=== PATIENT | male | born 1935 | race Caucasian/White ===

== ENCOUNTER 2017-03-26 12:06 | Inpatient (IN) | payer MEDICARE, BC ==
--- NOTE | 2017-03-26 12:35 | EDM.PDOC ---
ED HPI GENERAL MEDICAL PROBLEM - General Chief Complaint: Respiratory Problem Stated Complaint: COLD Time Seen by Provider: 03/26/17 12:20 Source of Information: Reports: Patient History Limitations: Reports: No Limitations - History of Present Illness INITIAL COMMENTS - FREE TEXT/NARRATIVE: This 81 yo male patient reports to the ED with a 1 month history of an increased cough. The patient reports he was seen by Dr. Elias yesterday in the clinic, given a fluid pill and was supposed to have an Echo scheduled. The patient reports his cough has continued, so he came into the ED for further evaluation and management. Onset: Gradual Onset Date: 02/23/17 Duration: Constant, Getting Worse Location: Reports: Chest (right posterior lower lung) Quality: Reports: Ache, Dull Severity: Moderate Improves with: Reports: None Worsens with: Reports: None Associated Symptoms: Reports: Cough, Nausea/Vomiting Left Lower Chest Pain Score (Numeric/FACES): 6 - Related Data Allergies Allergy/AdvReac Type Severity Reaction Status Date / Time ezetimibe [From Zetia] Allergy Nausea and Verified 03/26/17 12:34 Vomiting fluvastatin Allergy unknown Verified 03/26/17 12:34 lisinopril Allergy Hives Verified 03/26/17 12:34 losartan [Losartan] Allergy Itching Verified 03/26/17 12:34 simvastatin Allergy unknown Verified 03/26/17 12:34 tetracycline Allergy unknown Verified 03/26/17 12:34 Home Meds: Home Meds Aspirin [Ecotrin] 81 mg PO DAILY 06/14/13 [History] Doxazosin [Doxazosin Mesylate] 4 mg PO DAILY 06/14/13 [History] Metoprolol Tartrate 100 mg PO BID 06/14/13 [History] Multivitamin [Multivitamins] 1 tab PO DAILY 06/14/13 [History] Nitroglycerin [Nitrostat] 1 tab SL ASDIRECTED PRN 06/14/13 [History] Ranitidine [Zantac] 150 mg PO DAILY 06/14/13 [History] Rosuvastatin [Crestor] 20 mg PO DAILY 06/14/13 [History] Warfarin [Coumadin] 2.5 mg PO ASDIRECTED 06/14/13 [History] Warfarin [Coumadin] 5 mg PO ASDIRECTED 06/14/13 [History] amLODIPine [Norvasc] 10 mg PO DAILY 06/14/13 [History] ED ROS GENERAL - Review of Systems Review Of Systems: ROS reveals no pertinent complaints other than HPI. ED EXAM, GENERAL - Physical Exam Exam: See Below Exam Limited By: No Limitations General Appearance: Alert, WD/WN, Moderate Distress Eye Exam: Bilateral Eye: EOMI, Normal Inspection, PERRL Ears: Normal External Exam, Normal Canal, Hearing Grossly Normal, Normal TMs Nose: Normal Inspection, Normal Mucosa, No Blood Throat/Mouth: Normal Inspection, Normal Lips, Normal Teeth, Normal Gums, Normal Oropharynx, Normal Voice, No Airway Compromise Head: Atraumatic, Normocephalic Neck: Normal Inspection, Supple, Non-Tender, Full Range of Motion Respiratory/Chest: No Respiratory Distress, Decreased Breath Sounds, Rhonchi ( bilateral lower lobes) Cardiovascular: Systolic Murmur, Irregularly Irregular GI/Abdominal: Normal Bowel Sounds, Soft, Non-Tender, No Organomegaly, No Distention, No Abnormal Bruit, No Mass (Male) Exam: Deferred Rectal (Males) Exam: Deferred Back Exam: Normal Inspection, Full Range of Motion, NT Extremities: Normal Inspection, Normal Range of Motion, Non-Tender, Normal Capillary Refill, No Pedal Edema Neurological: Alert, Oriented, CN II-XII Intact, Normal Cognition, Normal Gait, Normal Reflexes, No Motor/Sensory Deficits Psychiatric: Normal Affect, Normal Mood Skin Exam: Warm, Dry, Intact, Normal Color, No Rash Lymphatic: No Adenopathy Course - Vital Signs Last Recorded V/S: Last Vital Signs Temp 36.3 C 03/26/17 12:10 Pulse 69 03/26/17 12:10 Resp 18 03/26/17 12:10 BP 161/73 H 03/26/17 12:10 Pulse Ox 91 L 03/26/17 12:10 - Orders/Labs/Meds Orders: Active Orders 24 hr Category Date Time Status Furosemide [Lasix] Med 03/26/17 13:17 Once 40 mg IVPUSH NOW ONE Sodium Chloride 0.9% [Saline Flush] Med 03/26/17 13:17 Ordered 10 ml FLUSH ASDIRECTED PRN Saline Lock Insert [OM.PC] Routine Oth 03/26/17 13:17 Ordered Labs: Laboratory Tests 03/26/17 03/26/17 03/26/17 Range/Units 12:40 12:40 12:40 WBC 3.7 L (5.0-10.0) 10^3/uL RBC 3.91 L (4.6-6.2) 10^6/uL Hgb 9.7 L (14.0-18.0) g/dL Hct 29.1 L (40.0-54.0) % MCV 74.4 L (80-100) fL MCH 24.8 L (27.0-34.0) pg MCHC 33.3 (33.0-35.0) g/dL Plt Count 182 (150-450) 10^3/uL Neut % (Auto) 71.6 (42.2-75.2) % Lymph % (Auto) 12.7 L (20.5-50.1) % [place] % (Auto) 15.4 H (2-8) % Eos % (Auto) 0.0 L (1.0-3.0) % Baso % (Auto) 0.3 (0.0-1.0) % Sodium 126 L (135-145) mmol/L Potassium 4.3 (3.6-5.0) mmol/L Chloride 92 L (101-111) mmol/L Carbon Dioxide 23.0 (21.0-31.0) mmol/L Anion Gap 15.3 BUN 17 (7-18) mg/dL Creatinine 1.0 (0.6-1.3) mg/dL Est Cr Clr Drug Dosing 63.59 mL/min Estimated GFR (MDRD) > 60 BUN/Creatinine Ratio 17.00 Glucose 112 H (74-105) mg/dL Calcium 8.9 (8.4-10.2) mg/dl Total Bilirubin 1.0 (0.2-1.0) mg/dL AST 24 (10-42) IU/L ALT 17 (10-60) IU/L Alkaline Phosphatase 51 (42-121) IU/L B-Natriuretic Peptide 1390 H (0-100) pg/ml Total Protein 7.6 (6.7-8.2) g/dl Albumin 4.1 (3.2-5.5) g/dl Globulin 3.5 Albumin/Globulin Ratio 1.17 Departure - Departure Time of Disposition: 13:19 Disposition: Admitted As Inpatient 66 Condition: Fair Clinical Impression: Hyponatremia CHF (congestive heart failure) Qualifiers: Congestive heart failure type: unspecified congestive heart failure type Congestive heart failure chronicity: acute on chronic Qualified Code(s): I50.9 - Heart failure, unspecified - Discharge Information Care Plan Goals: Discussed the examination, history and lab results with Dr. Inman. The patient will be admitted for continued evaluation and management as an inpatient at [facility] in [place]. - My Orders Last 24 Hours: My Active Orders 03/26/17 13:17 Furosemide [Lasix] 40 mg IVPUSH NOW ONE Sodium Chloride 0.9% [Saline Flush] 10 ml FLUSH ASDIRECTED PRN Saline Lock Insert [OM.PC] Routine - Assessment/Plan Last 24 Hours: My Active Orders 03/26/17 13:17 Furosemide [Lasix] 40 mg IVPUSH NOW ONE Sodium Chloride 0.9% [Saline Flush] 10 ml FLUSH ASDIRECTED PRN Saline Lock Insert [OM.PC] Routine
[2017-03-26 13:06] LABS: CHLORIDE,CL 92 mmol/L (101-111); SODIUM,NA 126 mmol/L (135-145)
[2017-03-26] MEDS ORDERED: Furosemide 40 MG/4 ML VIAL IVPUSH ONE (13:17)
[2017-03-26] MEDS ORDERED: Sodium Chloride 0.9% 10 ML Syringe FLUSH PRN ×2 (13:17→15:02)
[2017-03-26] MEDS ORDERED: Albuterol/Ipratropium 3.0-0.5 MG/3 ML Neb Soln NEB PRN (15:02)
[2017-03-26] MEDS ORDERED: Acetaminophen 325 MG Tab PO PRN (15:02)
[2017-03-26] MEDS ORDERED: Ondansetron 4 MG/2 ML SDV IVPUSH PRN (15:02)
--- NOTE | 2017-03-26 15:10 | PCM.HP ---
H&P History of Present Illness - General Date of Service: 03/26/17 Source of Information: Patient - History of Present Illness Initial Comments - Free Text/Narative: 81-year-old male with the past medical history of coronary artery disease status post bypass surgery many years ago, atrial fibrillation with detention anticoagulations, GERD, dyslipidemia, gallstones, liver cancer, hypertension presented to the emergency room for having worsening of dry cough and exertional shortness of breath for the last 1 month. Patient stated that the symptoms started last winter and they come and go. It has been difficult for him to sleep some nights because of shortness of breath. He reported also chest heaviness with exertion. He said the symptoms comes when he walks around the house. He denies shortness of breath or chest heaviness on rest. He reported lower extremities edema started 4 months ago and getting worse. Patient denies fever, chills, nausea, vomiting, diarrhea, abdominal pain, urinary symptoms, blood in stool, black stool, unilateral weakness/numbness/tingling, any other symptoms or concern. He was seen in the clinic for the same symptoms and BNP was 919. However today is 1390. Hemoglobin is 9.7. WBC 3.7. Platelet 182. Sodium 126. Potassium 4.3. He was started on Lasix 20 mg by mouth daily by his PCP yesterday. Patient did not feel any better. Chest x-ray from yesterday at the clinic reported "FINDINGS: Prior median sternotomy. Fractured wires are noted. Heart size upper normal to mildly prominent. There is congestive change within the pulmonary vasculature. Bilateral pleural effusions are present. Bilateral pulmonary opacities likely relate at least in part to edema. Superimposed atelectasis or infiltrate is not excluded. There is atherosclerotic change of the thoracic aorta." Echocardiogram from 1 year ago reported: "Interpretation Summary Left ventricular systolic function is normal. Ejection Fraction = >60%. The aortic valve is severely calcified. Moderate to severe valvular aortic stenosis. Mild aortic regurgitation. There is mild to moderate mitral regurgitation." Left Lower Chest Pain Score (Numeric/FACES): 6 - Related Data Allergies/Adverse Reactions: Allergies Allergy/AdvReac Type Severity Reaction Status Date / Time ezetimibe [From Zetia] Allergy Intermediate Nausea and Verified 03/26/17 14:58 Vomiting lisinopril Allergy Intermediate Hives Verified 03/26/17 14:58 losartan [Losartan] Allergy Mild Itching Verified 03/26/17 14:58 fluvastatin Allergy Unknown unknown Verified 03/26/17 14:58 simvastatin Allergy Unknown unknown Verified 03/26/17 14:58 tetracycline Allergy Unknown unknown Verified 03/26/17 15:00 Home Medications: Home Meds Aspirin [Ecotrin] 81 mg PO WITHDINNER 06/14/13 [History] Doxazosin [Doxazosin Mesylate] 4 mg PO DAILY 06/14/13 [History] Multivitamin [Multivitamins] 1 tab PO DAILY 06/14/13 [History] Nitroglycerin [Nitrostat] 1 tab SL ASDIRECTED PRN 06/14/13 [History] RX: Metoprolol Tartrate 100 mg PO BID 06/14/13 [History] Ranitidine [Zantac] 150 mg PO ACBREAKFAST 06/14/13 [History] Rosuvastatin [Crestor] 20 mg PO BEDTIME 06/14/13 [History] Warfarin [Coumadin] 2.5 mg PO ASDIRECTED 06/14/13 [History] Warfarin [Coumadin] 5 mg PO ASDIRECTED 06/14/13 [History] amLODIPine [Norvasc] 10 mg PO .NOON 06/14/13 [History] Past Medical History HEENT History: Reports: Hard of Hearing, Impaired Vision Cardiovascular History: Reports: Afib, Bypass, CAD, High Cholesterol, Hypertension, Other (See Below) Other Cardiovascular History: carotid artery disease Respiratory History: Reports: SOB Gastrointestinal History: Reports: GERD Genitourinary History: Reports: BPH Hematologic History: Reports: Blood Transfusion(s) Oncologic (Cancer) History: Reports: Liver, Other (See Below) Other Oncologic History: skin CA unknown what type Dermatologic History: Reports: Other (See Below) Other Dermatologic History: actinic keratosis - Past Surgical History Cardiovascular Surgical History: Reports: Valve Replacement Respiratory Surgical History: Reports: None Social & Family History - Family History HEENT: Reports: None Cardiac: Reports: Hypertension Respiratory: Reports: None - Tobacco Use Smoking Status *Q: Former Smoker Years of Tobacco use: 2 Packs/Tins Daily: 0.5 Used Tobacco, but Quit: Yes Month Tobacco Last Used: 96+ Tobacco Use Comment: quit years ago Second Hand Smoke Exposure: No - Caffeine Use Caffeine Use: Reports: Coffee - Recreational Drug Use Recreational Drug Use: No H&P Review of Systems - Review of Systems: Review Of Systems: ROS reveals no pertinent complaints other than HPI. Exam - Exam Exam: See Below - Vital Signs Vital Signs: Last Vital Signs Temp 36.5 C 03/26/17 14:00 Pulse 79 03/26/17 14:00 Resp 16 03/26/17 14:00 BP 153/61 H 03/26/17 14:00 Pulse Ox 88 L 03/26/17 14:00 Weight: 85.729 kg - Exam General: Alert, Oriented, Cooperative. No: Moderate Distress, Severe Distress, Sedated, Lethargic, Obtunded HEENT: Conjunctiva Clear, EACs Clear, EOMI, Mucosa Moist & [place], Nares Patent, Normal Nasal Septum, Posterior Pharynx Clear, Pupils Equal, Pupils Reactive, TMs Clear Neck: Supple, Trachea Midline. No: JVD Lungs: Normal Respiratory Effort, Decreased Breath Sounds (Mostly in basis). No : Crackles, Rales, Rhonchi, Rub, Stridor, Wheezing Cardiovascular: Regular Rate, Regular Rhythm, Normal S1 GI/Abdominal Exam: Normal Bowel Sounds, Non-Tender, No Organomegaly, No Distention, No Abnormal Bruit, No Mass (Male) Exam: Deferred Rectal (Males) Exam: Deferred Back Exam: Normal Inspection, Full Range of Motion. No: CVA Tenderness (L), CVA Tenderness (R) Extremities: Normal Range of Motion, Non-Tender, Normal Capillary Refill, Pedal Edema (+3 bilaterally) Skin: Warm, Dry, Intact Neurological: Cranial Nerves Intact Neuro Extensive - Mental Status: Oriented x3, Normal Mood/Affect Neuro Extensive - Motor, Sensory, Reflexes: CN II-XII Intact Psychiatric: Alert, Normal Affect, Normal Mood - Patient Data Result Diagrams: 03/26/17 12:40 03/26/17 12:40 *Q Meaningful Use (ADM) - VTE *Q VTE Criteria *Q: - Stroke *Q Stroke Criteria *Q: - AMI *Q AMI Criteria *Q: - Problem List (1) Atrial fibrillation SNOMED Code(s): 41810218 ICD Code: I48.91 - UNSPECIFIED ATRIAL FIBRILLATION Status: Chronic Current Visit: Yes (2) Coronary artery disease SNOMED Code(s): 76212171 ICD Code: I25.10 - ATHSCL HEART DISEASE OF [place] CORONARY ARTERY W/O ANG PCTRS Status: Chronic Current Visit: Yes (3) Chronic anticoagulation SNOMED Code(s): 666080195 ICD Code: Z79.01 - PARER (CURRENT) USE OF ANTICOAGULANTS Status: Chronic Current Visit: Yes (4) Lower extremity edema SNOMED Code(s): 959075054 ICD Code: R60.0 - LOCALIZED EDEMA Status: Acute Current Visit: Yes Problem List Initiated/Reviewed/Updated: Yes Orders Last 24hrs: Active Orders 24 hr Category Date Time Status Sodium Chloride 0.9% [Saline Flush] Med 03/26/17 13:17 Active 10 ml FLUSH ASDIRECTED PRN Saline Lock Insert [OM.PC] Routine Oth 03/26/17 13:17 Ordered Medication Orders Sodium Chloride (Saline Flush) 10 ml FLUSH ASDIRECTED PRN PRN Reason: Keep Vein Open Last Admin: 03/26/17 13:24 Dose: 10 ml Assessment/Plan Comment:: Assessment and plan Acute exacerbation of congestive heart failure Start on Lasix 40 mg IV every 8 hours. Potassium chloride 10 mEq by mouth every 8 hours while on Lasix Strict I&O's Daily weight Fluid restriction to 1500 mL per 24 hours Repeat BNP Echocardiogram ordered. Available on Wednesday Hold amlodipine and start lisinopril 5 mg daily as I am suspecting his congestive heart failure to be systolic Hyponatremia Possibly from congestive heart failure Treat as above Purulent effusion, bilateral Possibly from congestive heart failure Treat as above Cough He is former smoker DuoNeb every 6 hours Lower extremities edema Most likely from congestive heart failure Treat as above Hold amlodipine History of atrial fibrillation Continue warfarin Essential hypertension Mildly elevated Continue metoprolol Hold amlodipine and start lisinopril 5 mg daily If blood pressure continues to be elevated then may consider hydralazine or Imdur Coronary artery disease Check troponin EKG is unremarkable for acute T-wave or ST interval changes Dyslipidemia Continue statin History of liver cancer Follow-up with primary care provider DVT prophylaxis: He is in Coumadin and INR is therapeutic He wants to be DNR for CODE STATUS
[2017-03-26] MEDS: Furosemide 40 MG/4 ML VIAL IVPUSH SCH ×2 (15:58→23:00)
[2017-03-26] MEDS ORDERED: Nitroglycerin 0.4 MG Tab.SL SL PRN (16:39)
[2017-03-26] MEDS ORDERED: Lisinopril 5 MG Tab PO SCH (16:42)
[2017-03-26] MEDS: Potassium Chloride 10 MEQ Tab.ER PO SCH ×2 (17:24→19:46)
[2017-03-26] MEDS: Aspirin 81 MG Tab.EC PO SCH (17:24)
--- NOTE | 2017-03-26 17:26 | PCM.SN ---
- Free Text/Narrative Note: Was found that patient is allergic to lisinopril and losartan. I am changing it to hydralazine 12.5 mg every 8 hours.
[2017-03-26] MEDS: Albuterol/Ipratropium 3.0-0.5 MG/3 ML Neb Soln NEB SCH ×3 (17:28→23:00)
[2017-03-26] MEDS ORDERED: Warfarin 2.5 MG Tab PO SCH (18:00)
[2017-03-26] MEDS: hydrALAZINE 25 MG Tab PO SCH (19:47)
[2017-03-26] MEDS: Metoprolol Tartrate 25 MG Tab PO SCH (20:51)
[2017-03-26] MEDS: Rosuvastatin 10 MG Tab PO SCH (20:51)
[2017-03-27] MEDS: Famotidine 20 MG Tab PO SCH ×2 (05:36→16:25)
[2017-03-27] MEDS: Albuterol/Ipratropium 3.0-0.5 MG/3 ML Neb Soln NEB SCH ×4 (05:36→18:07)
[2017-03-27 07:02] LABS: CHLORIDE,CL 92 mmol/L (101-111); SODIUM,NA 128 mmol/L (135-145)
[2017-03-27] MEDS: Metoprolol Tartrate 25 MG Tab PO SCH ×2 (09:22→20:52)
[2017-03-27] MEDS: Potassium Chloride 10 MEQ Tab.ER PO SCH ×3 (09:22→17:27)
[2017-03-27] MEDS: hydrALAZINE 25 MG Tab PO SCH ×3 (09:23→20:51)
[2017-03-27] MEDS: Doxazosin 2 MG Tab PO SCH (09:25)
[2017-03-27] MEDS: Multivitamins,Therapeutic Tab PO SCH (09:25)
[2017-03-27] MEDS: Furosemide 40 MG/4 ML VIAL IVPUSH SCH ×3 (09:27→22:58)
--- NOTE | 2017-03-27 10:33 | PCM.PN ---
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 Denies: Fever, Chills , Appetite (good) HEENT: Denies: Headaches, Sore Throat, Visual Changes Pulmonary: Reports: Shortness of Breath, Sputum. Denies: Cough, Wheezing Cardiovascular: Reports: Dyspnea on Exertion. Denies: Chest Pain, Lightheadedness Gastrointestinal: Denies: Abdominal Pain, Diarrhea, Nausea, Vomiting Genitourinary: Denies: Dysuria, Burning, Urgency, Flank Pain Musculoskeletal: Denies: Hand Pain, Leg Pain, Foot Pain, Joint Pain Skin: Denies: Bruising, Pruritis, Rash Neurological: Denies: Confusion, Headache, Tremors Psychiatric: Reports: No Symptoms - Patient Data Vitals - Most Recent: Last Vital Signs Temp 36.9 C 03/27/17 07:00 Pulse 63 03/27/17 09:22 Resp 20 03/27/17 07:00 BP 141/66 H 03/27/17 09:25 Pulse Ox 95 03/27/17 07:00 Weight - Most Recent: 80.014 kg I&O - Last 24 Hours: Intake & Output 03/26/17 03/27/17 03/27/17 22:59 06:59 14:59 Intake Total 250 Output Total 2100 Balance 250 -2100 Lab Results Last 24 Hours: Laboratory Results - last 24 hr 03/26/17 03/27/17 03/27/17 Range/Units 16:25 05:55 05:55 WBC 4.5 L (5.0-10.0) 10^3/uL RBC 3.75 L (4.6-6.2) 10^6/uL Hgb 9.2 L (14.0-18.0) g/dL Hct 27.9 L (40.0-54.0) % MCV 74.4 L (80-100) fL MCH 24.5 L (27.0-34.0) pg MCHC 33.0 (33.0-35.0) g/dL Plt Count 177 (150-450) 10^3/uL Neut % (Auto) 66.2 (42.2-75.2) % Lymph % (Auto) 15.4 L (20.5-50.1) % [place] % (Auto) 18.0 H (2-8) % Eos % (Auto) 0.2 L (1.0-3.0) % Baso % (Auto) 0.2 (0.0-1.0) % Sodium 128 L (135-145) mmol/L Potassium 3.6 (3.6-5.0) mmol/L Chloride 92 L (101-111) mmol/L Carbon Dioxide 25.0 (21.0-31.0) mmol/L Anion Gap 14.6 BUN 17 (7-18) mg/dL Creatinine 1.0 (0.6-1.3) mg/dL Est Cr Clr Drug Dosing 63.59 mL/min Estimated GFR (MDRD) > 60 Glucose 96 (74-105) mg/dL Calcium 8.5 (8.4-10.2) mg/dl Magnesium 1.7 L (1.8-2.5) mg/dL Troponin I 0.02 (0.00-0.02) ng/ml B-Natriuretic Peptide 1890 H (0-100) pg/ml Urine Color Yellow (YELLOW) Urine Appearance Clear (CLEAR) Urine pH 5.5 (5.0-9.0) Ur Specific [place] 1.010 (1.005-1.030) Urine Protein Negative (NEGATIVE) Urine Glucose (UA) Negative (NEGATIVE) Urine Ketones Negative (NEGATIVE) Urine Occult Blood Small H (NEGATIVE) Urine Nitrite Negative (NEGATIVE) Urine Bilirubin Negative (NEGATIVE) Urine Urobilinogen 0.2 (0.2-1.0) mg/dL Ur Leukocyte Esterase Negative (NEGATIVE) Urine RBC 5-10 H /HPF Urine WBC Not seen (0-5/HPF) /HPF Ur Epithelial Cells Rare /HPF Urine Bacteria Rare (0-FEW/HPF) /HPF Med Orders - Current: Current Medications Acetaminophen (Tylenol) 650 mg PO Q4H PRN PRN Reason: Pain (Mild 1-3)/fever Albuterol/Ipratropium (Duoneb 3.0-0.5 Mg/3 Ml) 3 ml NEB Q6H [facility] Last Admin: 03/27/17 05:36 Dose: 3 ml Aspirin (Halfprin) 81 mg PO WITHDINNER [facility] Last Admin: 03/26/17 17:24 Dose: 81 mg Doxazosin Mesylate (Cardura) 4 mg PO DAILY [facility] Last Admin: 03/27/17 09:25 Dose: 4 mg Famotidine (Pepcid) 20 mg PO BIDAC [facility] Last Admin: 03/27/17 05:36 Dose: 20 mg Furosemide (Lasix) 40 mg IVPUSH Q8H [facility] Last Admin: 03/27/17 09:27 Dose: 40 mg Hydralazine HCl (Apresoline) 12.5 mg PO TID [facility] Last Admin: 03/27/17 09:23 Dose: 12.5 mg Metoprolol Tartrate (Lopressor) 100 mg PO BID [facility] Last Admin: 03/27/17 09:22 Dose: 100 mg Multivitamins (Thera) 1 each PO DAILY [facility] Last Admin: 03/27/17 09:25 Dose: 1 each Nitroglycerin (Nitrostat) 0.4 mg SL ASDIRECTED PRN PRN Reason: Chest Pain Ondansetron HCl (Zofran) 4 mg IVPUSH Q6H PRN PRN Reason: Nausea/Vomiting Potassium Chloride (Klor-Con 10) 10 meq PO TIDMEALS [facility] Last Admin: 03/27/17 09:22 Dose: 10 meq Rosuvastatin Calcium (Crestor) 20 mg PO BEDTIME [facility] Last Admin: 03/26/17 20:51 Dose: 20 mg Sodium Chloride (Saline Flush) 10 ml FLUSH ASDIRECTED PRN PRN Reason: Keep Vein Open Last Admin: 03/26/17 13:24 Dose: 10 ml Warfarin Sodium (Coumadin) 2.5 mg PO [id number]@1400 [facility] Last Admin: 03/26/17 19:47 Dose: 2.5 mg Warfarin Sodium (Coumadin) 5 mg PO [id number]@1400 [facility] Discontinued Medications Albuterol/Ipratropium (Duoneb 3.0-0.5 Mg/3 Ml) 3 ml NEB Q4H PRN PRN Reason: shortness of breath/wheezing Furosemide (Lasix) 40 mg IVPUSH NOW ONE Stop: 03/26/17 13:18 Last Admin: 03/26/17 13:24 Dose: 40 mg Lisinopril (Prinivil) 5 mg PO DAILY [facility] Last Admin: 03/26/17 18:49 Dose: Not Given - Exam Quality Assessment: Supplemental Oxygen, DVT Prophylaxis. No: Urine Catheter General: Alert, Oriented, Cooperative, No Acute Distress HEENT: Pupils Equal, Mucous Membr. Moist/[place] Neck: Supple, JVD. No: Lymphadenopathy, Thyromegaly Lungs: Clear to Auscultation, Normal Respiratory Effort, Crackles Cardiovascular: Irregular Rhythm, Murmurs GI/Abdominal Exam: Normal Bowel Sounds, No Distention. No: Guarding, Rebound, Tender (Male) Exam: Deferred Back Exam: Normal Inspection, Full Range of Motion Extremities: Normal Inspection, Pedal Edema, Other (good peripheral pulses) Skin: Warm, Dry, Intact Neurological: No New Focal Deficit Psy/Mental Status: Alert, Normal Affect, Normal Mood - Problem List & Annotations (1) CHF (congestive heart failure) SNOMED Code(s): 41557839 Code(s): I50.9 - HEART FAILURE, UNSPECIFIED Status: Acute Current Visit: Yes Qualifiers: Congestive heart failure type: unspecified congestive heart failure type Congestive heart failure chronicity: acute on chronic Qualified Code(s): I50.9 - Heart failure, unspecified (2) Hyponatremia SNOMED Code(s): 42065905 Code(s): E87.1 - HYPO-OSMOLALITY AND HYPONATREMIA Status: Acute Current Visit: Yes (3) Lower extremity edema SNOMED Code(s): 330867710 Code(s): R60.0 - LOCALIZED EDEMA Status: Acute Current Visit: Yes (4) Atrial fibrillation SNOMED Code(s): 21567669 Code(s): I48.91 - UNSPECIFIED ATRIAL FIBRILLATION Status: Chronic Current Visit: Yes (5) Chronic anticoagulation SNOMED Code(s): 890718735 Code(s): Z79.01 - [place] (CURRENT) USE OF ANTICOAGULANTS Status: Chronic Current Visit: Yes - Problem List Review Problem List Initiated/Reviewed/Updated: Yes - Plan Plan:: This is a 81 Y/O pleasant male admitted with increaseds shortness of breath, dyspnea on exertion and incread fluid retention to his lower extremity Assessment and plan Acute exacerbation of congestive heart failure Start on Lasix 40 mg IV every 8 hours. Potassium chloride 10 mEq by mouth every 8 hours while on Lasix Strict I&O's Daily weight continue Fluid restriction to 1500 mL per 24 hours Repeat BNP Echocardiogram ordered but will be not be Available on Wednesday Hold amlodipine and start lisinopril 5 mg daily as I am suspecting his congestive heart failure to be systolic Hyponatremia Possibly from congestive heart failure Will continue IV lasix and fluid restriction, sodium is improving Cough He is former smoker Continue DuoNeb every 6 hours and wean off oxygen Lower extremities edema Most likely from congestive heart failure -Will continue IV lasix and Hold amlodipine History of atrial fibrillation Continue warfarin Essential hypertension Mildly elevated Continue metoprolol Hold amlodipine and continue Hydralazine at 25 mg TID Dyslipidemia Continue statin History of liver cancer Follow-up with primary care provider DVT prophylaxis: He is in Coumadin and INR is therapeutic GI prophylaxis: Contone Protonix He wants to be DNR for CODE STATUS
[2017-03-27] MEDS ORDERED: Warfarin 5 MG Tab PO SCH (14:00)
[2017-03-27] MEDS: Aspirin 81 MG Tab.EC PO SCH (17:27)
[2017-03-27] MEDS: Rosuvastatin 10 MG Tab PO SCH (20:52)
[2017-03-28] MEDS: Albuterol/Ipratropium 3.0-0.5 MG/3 ML Neb Soln NEB SCH ×3 (02:50→13:34)
[2017-03-28] MEDS: Famotidine 20 MG Tab PO SCH (05:32)
[2017-03-28 06:17] LABS: CHLORIDE,CL 89 mmol/L (101-111); SODIUM,NA 130 mmol/L (135-145)
[2017-03-28] MEDS: Furosemide 40 MG/4 ML VIAL IVPUSH SCH ×2 (10:45→16:21)
[2017-03-28] MEDS: Metoprolol Tartrate 25 MG Tab PO SCH (10:45)
[2017-03-28] MEDS: hydrALAZINE 25 MG Tab PO SCH ×2 (10:46→13:39)
[2017-03-28] MEDS: Doxazosin 2 MG Tab PO SCH (10:46)
[2017-03-28] MEDS: Potassium Chloride 10 MEQ Tab.ER PO SCH ×2 (10:46→12:53)
[2017-03-28] MEDS: Multivitamins,Therapeutic Tab PO SCH (10:46)
[2017-03-28] MEDS ORDERED: Potassium Chloride 10 MEQ Tab.ER PO ONE (10:50)
--- NOTE | 2017-03-28 11:24 | PCM.DCSUM1 ---
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 Pt was admitted for Fluid overload and dyspnea on exertion and was give IV lasix ( 40 mg 3 times a day]. He is now doing well, off supplemental oxygen and will be going home. Pt is advised to Follow with PMD within 2-3 days. He will go home on lasix 40 mg daily and also on potassium 10 meq daily. He will have labs and follow up with PMD in 2-3 days. HPI Initial Comments: Pt was admitted with Exertional Dyspnea and Increased B/L LE swelling - Discharge Data Discharge Date: 03/28/17 Discharge Disposition: Home, Self-Care 01 Condition: Good - Discharge Diagnosis/Problem(s) (1) CHF (congestive heart failure) SNOMED Code(s): 55952661 ICD Code: I50.9 - HEART FAILURE, UNSPECIFIED Status: Acute Current Visit : Yes Qualifiers: Congestive heart failure type: unspecified congestive heart failure type Congestive heart failure chronicity: acute on chronic Qualified Code(s): I50.9 - Heart failure, unspecified (2) Hyponatremia SNOMED Code(s): 40423267 ICD Code: E87.1 - HYPO-OSMOLALITY AND HYPONATREMIA Status: Acute Current Visit: Yes (3) Lower extremity edema SNOMED Code(s): 297981809 ICD Code: R60.0 - LOCALIZED EDEMA Status: Acute Current Visit: Yes (4) Atrial fibrillation SNOMED Code(s): 44136581 ICD Code: I48.91 - UNSPECIFIED ATRIAL FIBRILLATION Status: Chronic Current Visit: Yes (5) Chronic anticoagulation SNOMED Code(s): 478637648 ICD Code: Z79.01 - PROTOTYPE CARPENTER (CURRENT) USE OF ANTICOAGULANTS Status: Chronic Current Visit: Yes - Patient Summary/Data Consults: Consultations 03/26/17 18:53 Consult to Pharmacy [CONS] Routine - Patient Instructions Diet: Usual Diet as Tolerated, Low Sodium Activity: As Tolerated Driving: May Drive Today Showering/Bathing: May Shower Other/Special Instructions: This is a 81-year-old male with the past medical history of coronary artery disease ,status post bypass surgery many years ago, 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 Pt was admitted for Fluid overload ( Secondary to Acute CHF) and dyspnea on exertion and was give IV lasix ( 40 mg 3 times a day]. He is now doing well, off supplemental oxygen and will be going home. Pt is advised to Follow with PMD within 2-3 days. He will go home on lasix 40 mg daily and also on potassium 10 meq daily. He will neded labs and follow up with PMD in 2-3 days. - Discharge Plan Prescriptions/Med Rec: Furosemide 40 mg PO DAILY 15 Days #15 tablet hydrALAZINE [Apresoline] 25 mg PO BID #30 tablet Potassium Chloride [Klor-Con 10] 10 meq PO DAILY 15 Days #15 tab.er Home Medications: Home Meds Aspirin [Ecotrin] 81 mg PO WITHDINNER 06/14/13 [History] Doxazosin [Cardura] 4 mg PO DAILY 06/14/13 [History] Metoprolol Tartrate 100 mg PO BID 06/14/13 [History] Multivitamin [Multivitamins] 1 tab PO DAILY 06/14/13 [History] Nitroglycerin [Nitrostat] 1 tab SL ASDIRECTED PRN 06/14/13 [History] Ranitidine [Zantac] 150 mg PO ACBREAKFAST 06/14/13 [History] Rosuvastatin [Crestor] 20 mg PO BEDTIME 06/14/13 [History] Warfarin [Coumadin] 2.5 mg PO ASDIRECTED 06/14/13 [History] Warfarin [Coumadin] 5 mg PO ASDIRECTED 06/14/13 [History] Furosemide 40 mg PO DAILY 15 Days #15 tablet 03/28/17 [Rx] Potassium Chloride [Klor-Con 10] 10 meq PO DAILY 15 Days #15 tab.er 03/28/17 [Rx ] hydrALAZINE [Apresoline] 25 mg PO BID #30 tablet 03/28/17 [Rx] - Discharge Summary/Plan Comment DC Time >30 min.: Yes Discharge Summary/Plan Comment: This is a 81 Y/O pleasant male admitted with increased shortness of breath, dyspnea on exertion and increased fluid retention to his B/L lower extremity Assessment and plan Acute exacerbation of congestive heart failure Will stop IV Lasix and will go home on lasix 40 mg daily -Will continue Potassium chloride 10 mEq by mouth daily -Continue to check Daily weight at home - continue Fluid restriction to 1500 mL per 24 hours Hyponatremia Possibly from congestive heart failure Will continue oral lasix 40 mg daily and fluid restriction 1500 ml/24 hrs - sodium is improving with diuresis Cough He is former smoker and follow with PMD Lower extremities edema Most likely from congestive heart failure -Will stop IV lasix and Hold amlodipine and will go home on lasix 40 mg daily History of atrial fibrillation Continue warfarin Essential hypertension BP acceptable, will continue metoprolol 100 mg BID and Hydralazine at 25 mg TID -Will stop Amlodipine because of Fluid retention Dyslipidemia Continue statin History of liver cancer Follow-up with primary care provider Disposition: He will be going home today and will follow with PMD in 2-3 days with labs - General Info Date of Service: 03/28/17 Admission Dx/Problem (Free Text: 81-year-old male with the past medical history of coronary artery disease status post bypass surgery many years ago, 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 Denies: Fever, Chills HEENT: Denies: Sinus Congestion, Sore Throat, Visual Changes Pulmonary: Denies: Shortness of Breath, Cough, Sputum, Wheezing Cardiovascular: Reports: Dyspnea on Exertion. Denies: Chest Pain, Lightheadedness Gastrointestinal: Reports: Abdominal Pain. Denies: Diarrhea, Nausea, Vomiting Genitourinary: Denies: Dysuria, Frequency, Burning, Urgency, Flank Pain Musculoskeletal: Denies: Shoulder Pain, Leg Pain, Joint Swelling Skin: Denies: Cyanosis, Bruising, Rash Neurological: Denies: Confusion, Numbness, Tremors Psychiatric: Reports: No Symptoms - Patient Data Vitals - Most Recent: Last Vital Signs Temp 37.0 C 03/28/17 10:48 Pulse 89 03/28/17 10:48 Resp 20 03/28/17 10:48 BP 134/66 03/28/17 10:48 Pulse Ox 92 L 03/28/17 10:48 Weight - Most Recent: 80.014 kg I&O - Last 24 hours: Intake & Output 03/27/17 03/28/17 03/28/17 22:59 06:59 14:59 Intake Total 500 250 320 Output Total 1900 700 Balance -1400 -450 320 Lab Results - Last 24 hrs: Laboratory Results - last 24 hr 03/28/17 03/28/17 Range/Units 05:15 05:20 PT 24.5 H (9.0-12.0) SEC INR 2.4 H (0.9-1.2) Sodium 130 L (135-145) mmol/L Potassium 3.2 L (3.6-5.0) mmol/L Chloride 89 L (101-111) mmol/L Carbon Dioxide 29.0 (21.0-31.0) mmol/L Anion Gap 15.2 BUN 20 H (7-18) mg/dL Creatinine 1.1 (0.6-1.3) mg/dL Est Cr Clr Drug Dosing 56.77 mL/min Estimated GFR (MDRD) > 60 Glucose 94 (74-105) mg/dL Calcium 8.4 (8.4-10.2) mg/dl B-Natriuretic Peptide 1420 H (0-100) pg/ml TRISTIN Results - Last 24 hrs: Microbiology 03/27/17 17:50 Stool Occult Blood (TRISTIN) - Final Stool / Feces NEGATIVE OCCULT BLOOD Med Orders - Current: Current Medications Acetaminophen (Tylenol) 650 mg PO Q4H PRN PRN Reason: Pain (Mild 1-3)/fever Albuterol/Ipratropium (Duoneb 3.0-0.5 Mg/3 Ml) 3 ml NEB Q6H [facility] Last Admin: 03/28/17 08:47 Dose: 3 ml Aspirin (Halfprin) 81 mg PO WITHDINNER [facility] Last Admin: 03/27/17 17:27 Dose: 81 mg Doxazosin Mesylate (Cardura) 4 mg PO DAILY [facility] Last Admin: 03/28/17 10:46 Dose: 4 mg Famotidine (Pepcid) 20 mg PO BIDAC [facility] Last Admin: 03/28/17 05:32 Dose: 20 mg Furosemide (Lasix) 40 mg IVPUSH Q8H [facility] Last Admin: 03/28/17 10:45 Dose: 40 mg Hydralazine HCl (Apresoline) 25 mg PO TID [facility] Last Admin: 03/28/17 10:46 Dose: 25 mg Metoprolol Tartrate (Lopressor) 100 mg PO BID [facility] Last Admin: 03/28/17 10:45 Dose: 100 mg Multivitamins (Thera) 1 each PO DAILY [facility] Last Admin: 03/28/17 10:46 Dose: 1 each Nitroglycerin (Nitrostat) 0.4 mg SL ASDIRECTED PRN PRN Reason: Chest Pain Ondansetron HCl (Zofran) 4 mg IVPUSH Q6H PRN PRN Reason: Nausea/Vomiting Potassium Chloride (Klor-Con 10) 10 meq PO TIDMEALS [facility] Last Admin: 03/28/17 10:46 Dose: 10 meq Rosuvastatin Calcium (Crestor) 20 mg PO BEDTIME [facility] Last Admin: 03/27/17 20:52 Dose: 20 mg Sodium Chloride (Saline Flush) 10 ml FLUSH ASDIRECTED PRN PRN Reason: Keep Vein Open Last Admin: 03/26/17 13:24 Dose: 10 ml Warfarin Sodium (Pharmacy To Dose - Warfarin) 1 dose .XX ASDIRECTED [facility] Warfarin Sodium (Coumadin) 5 mg PO ONETIME ONE Stop: 03/28/17 14:01 Discontinued Medications Albuterol/Ipratropium (Duoneb 3.0-0.5 Mg/3 Ml) 3 ml NEB Q4H PRN PRN Reason: shortness of breath/wheezing Albuterol/Ipratropium (Duoneb 3.0-0.5 Mg/3 Ml) 3 ml NEB Q6H [facility] Last Admin: 03/27/17 12:49 Dose: Not Given Furosemide (Lasix) 40 mg IVPUSH NOW ONE Stop: 03/26/17 13:18 Last Admin: 03/26/17 13:24 Dose: 40 mg Hydralazine HCl (Apresoline) 12.5 mg PO TID [facility] Last Admin: 03/27/17 09:23 Dose: 12.5 mg Lisinopril (Prinivil) 5 mg PO DAILY [facility] Last Admin: 03/26/17 18:49 Dose: Not Given Potassium Chloride (Klor-Con 10) 40 meq PO ONETIME ONE Stop: 03/28/17 10:51 Warfarin Sodium (Coumadin) 2.5 mg PO [id number]@1400 [facility] Last Admin: 03/26/17 19:47 Dose: 2.5 mg Warfarin Sodium (Coumadin) 5 mg PO [id number]@1400 [facility] Last Admin: 03/27/17 14:52 Dose: 5 mg - Exam Quality Assessment: Reports: DVT Prophylaxis. Denies: Supplemental Oxygen, Urine Catheter General: Reports: Alert, Oriented HEENT: Reports: Pupils Equal, EOMI, Mucous Membr. Moist/[place]ck: Reports: Supple, No Thyromegaly, JVD. Denies: Lymphadenopathy Lungs: Reports: Clear to Auscultation, Normal Respiratory Effort. Denies: Crackles, Wheezing Cardiovascular: Reports: Irregular Rhythm, Murmurs GI/Abdominal Exam: Normal Bowel Sounds, Soft, Non-Tender. No: Guarding, Rebound , Tender (Male) Exam: Deferred Rectal (Males) Exam: Deferred Back Exam: Reports: Normal Inspection, Full Range of Motion Extremities: Normal Inspection, No Pedal Edema Skin: Reports: Warm, Dry, Intact Neurological: Reports: No New Focal Deficit Psy/Mental Status: Reports: Alert, Normal Affect, Normal Mood *Q Meaningful Use (DIS) - VTE *Q VTE Criteria *Q: - Stroke *Q Stroke Criteria *Q: - AMI *Q AMI Criteria *Q:
[2017-03-28 13:42] VITALS: BP 142/60
[2017-03-28] MEDS ORDERED: Warfarin 5 MG Tab PO ONE (14:00)
== END 2017-03-28 14:00 | disposition home or self-care (01) | DRG 292 ==
LOC: DL.ED 12:06 → UNDOADMOB 13:16 → DL.MS 13:16 → OBSVTOIN 15:02
PROVIDERS: ADMIT Family Medicine; ATTEND Family Medicine
DX: I11.0 Hypertensive heart disease with heart failure (principal); I50.9 Heart failure, unspecified; I25.810 Atherosclerosis of coronary artery bypass graft(s) without angina pectoris; E87.1 Hypo-osmolality and hyponatremia; I50.23 Acute on chronic systolic (congestive) heart failure; I48.91 Unspecified atrial fibrillation; R60.0 Localized edema; R05 Cough; Z87.891 Personal history of nicotine dependence; E78.5 Hyperlipidemia, unspecified; Z85.05 Personal history of malignant neoplasm of liver; Z66 Do not resuscitate; K21.9 Gastro-esophageal reflux disease without esophagitis; Z79.82 Long term (current) use of aspirin; Z79.899 Other long term (current) drug therapy; Z88.8 Allergy status to other drugs, medicaments and biological substances; Z79.01 Long term (current) use of anticoagulants
CPT/HCPCS: 36415; 80053; 83880; 85025; 96374; 99284; J1940; J7050; 71020; 80048; 81001; 82272; 83735; 84484; 85610; 94640; 94640-76; A9270-GY

== ENCOUNTER 2017-04-17 16:20 | Emergency (ER) | payer MEDICARE, BC ==
[2017-04-17] MEDS ORDERED: Morphine 4 MG/ML Syringe ONE (16:41)
[2017-04-17] MEDS ORDERED: LORazepam 2 MG/ML Syringe ONE (16:45)
[2017-04-17 17:01] LABS: CHLORIDE,CL 99 mmol/L (101-111); SODIUM,NA 137 mmol/L (135-145)
--- NOTE | 2017-04-17 17:14 | EDM.PDOC ---
ED HPI GENERAL MEDICAL PROBLEM - General Chief Complaint: CPR in Progress Stated Complaint: GENERAL, SP [facility] Time Seen by Provider: 04/17/17 16:20 Source of Information: Reports: EMS Notes Reviewed, Family History Limitations: Reports: No Limitations - History of Present Illness INITIAL COMMENTS - FREE TEXT/NARRATIVE: 82 yo white male brought in by ambulance with external pacemaker. 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 When EMS arrived the HR was 34/min. In ER patient evaluated and and sons advised to "let him go" and refused intubation and agreed to turn off the external pacemaker. PMHx. CAHD and Carotid stenosis and CA Onset: Today Onset Date: 04/17/17 Onset Time: 16:20 Duration: Getting Worse Location: Reports: Chest Quality: Reports: Stabbing Severity: Severe Improves with: Reports: None Worsens with: Reports: None Associated Symptoms: Reports: No Other Symptoms - Related Data Allergies Allergy/AdvReac Type Severity Reaction Status Date / Time ezetimibe [From Zetia] Allergy Intermediate Nausea and Verified 03/26/17 14:58 Vomiting lisinopril Allergy Intermediate Hives Verified 03/26/17 14:58 losartan [Losartan] Allergy Mild Itching Verified 03/26/17 14:58 fluvastatin Allergy Unknown unknown Verified 03/26/17 14:58 simvastatin Allergy Unknown unknown Verified 03/26/17 14:58 tetracycline Allergy Unknown unknown Verified 03/26/17 15:00 Home Meds: Home Meds Aspirin [Ecotrin] 81 mg PO WITHDINNER 06/14/13 [History] Doxazosin [Cardura] 4 mg PO DAILY 06/14/13 [History] Metoprolol Tartrate 100 mg PO BID 06/14/13 [History] Multivitamin [Multivitamins] 1 tab PO DAILY 06/14/13 [History] Nitroglycerin [Nitrostat] 1 tab SL ASDIRECTED PRN 06/14/13 [History] Ranitidine [Zantac] 150 mg PO ACBREAKFAST 06/14/13 [History] Rosuvastatin [Crestor] 20 mg PO BEDTIME 06/14/13 [History] Warfarin [Coumadin] 2.5 mg PO ASDIRECTED 06/14/13 [History] Warfarin [Coumadin] 5 mg PO ASDIRECTED 06/14/13 [History] Furosemide 40 mg PO DAILY 15 Days #15 tablet 03/28/17 [Rx] Potassium Chloride [Klor-Con 10] 10 meq PO DAILY 15 Days #15 tab.er 03/28/17 [Rx ] hydrALAZINE [Apresoline] 25 mg PO BID #30 tablet 03/28/17 [Rx] Past Medical History HEENT History: Reports: Hard of Hearing, Impaired Vision Cardiovascular History: Reports: Afib, Bypass, CAD, High Cholesterol, Hypertension, Other (See Below) Other Cardiovascular History: carotid artery disease Respiratory History: Reports: SOB Gastrointestinal History: Reports: GERD Genitourinary History: Reports: BPH Hematologic History: Reports: Blood Transfusion(s) Oncologic (Cancer) History: Reports: Liver, Other (See Below) Other Oncologic History: skin CA unknown what type Dermatologic History: Reports: Other (See Below) Other Dermatologic History: actinic keratosis - Past Surgical History Cardiovascular Surgical History: Reports: Valve Replacement Respiratory Surgical History: Reports: None Social & Family History - Family History HEENT: Reports: None Cardiac: Reports: Hypertension Respiratory: Reports: None - Tobacco Use Smoking Status *Q: Former Smoker Years of Tobacco use: 2 Packs/Tins Daily: 0.5 Used Tobacco, but Quit: Yes Month Tobacco Last Used: 96+ Second Hand Smoke Exposure: No - Caffeine Use Caffeine Use: Reports: Coffee - Recreational Drug Use Recreational Drug Use: No ED ROS GENERAL - Review of Systems Review Of Systems: Unable To Obtain Cardiovascular: Reports: Chest Pain Neurological: Reports: Confusion ED EXAM, CPR - Physical Exam Exam: See Below Limited By: Unresponsive General Appearance: Lethargic, Obtunded, Moderate Distress Cardiovascular: CPR In Progress (w/ pacemaker) 0: Femoral (R), Femoral (L) Skin Exam: Cool, Pallor Comments: Pt. never recovered and family decided to withdraw all life saving support Course - Vital Signs Text/Narrative:: Pt. with full cardiac arrest and paced. Family refused intubation and decided to withdraw lifesaving measures - Orders/Labs/Meds Orders: Active Orders 24 hr Category Date Time Status D-DIMER QUANTITATIVE [COAG] Stat Lab 04/17/17 16:33 Results INR,PT,PROTHROMBIN TIME [COAG] Stat Lab 04/17/17 16:33 Results LACTIC ACID [CHEM] Stat Lab 04/17/17 16:33 Received PTT,PARTIAL THROMBOPLSTIN TIME [COAG] Stat Lab 04/17/17 16:33 Results Labs: Laboratory Tests 04/17/17 04/17/17 04/17/17 Range/Units 16:33 16:33 16:33 WBC 3.7 L (5.0-10.0) 10^3/uL RBC 3.32 L (4.6-6.2) 10^6/uL Hgb 8.1 L (14.0-18.0) g/dL Hct 26.4 L (40.0-54.0) % MCV 79.5 L D (80-100) fL MCH 24.4 L (27.0-34.0) pg MCHC 30.7 L (33.0-35.0) g/dL Plt Count 185 (150-450) 10^3/uL Neut % (Auto) 70.4 (42.2-75.2) % Lymph % (Auto) 16.2 L (20.5-50.1) % Leslie % (Auto) 11.3 H (2-8) % Eos % (Auto) 1.3 (1.0-3.0) % Baso % (Auto) 0.8 (0.0-1.0) % D-Dimer, Quantitative 837 H (0-400) ng/mL Sodium 137 (135-145) mmol/L Potassium 5.7 H D (3.6-5.0) mmol/L Chloride 99 L (101-111) mmol/L Carbon Dioxide 21.0 (21.0-31.0) mmol/L Anion Gap 22.7 BUN 22 H (7-18) mg/dL Creatinine 1.5 H (0.6-1.3) mg/dL Est Cr Clr Drug Dosing TNP Estimated GFR (MDRD) 45 BUN/Creatinine Ratio 14.66 Glucose 163 H (74-105) mg/dL Calcium 8.9 (8.4-10.2) mg/dl Total Bilirubin 0.7 (0.2-1.0) mg/dL AST 27 (10-42) IU/L ALT 21 (10-60) IU/L Alkaline Phosphatase 48 (42-121) IU/L Troponin I < 0.02 (0.00-0.02) ng/ml Total Protein 6.1 L (6.7-8.2) g/dl Albumin 3.3 (3.2-5.5) g/dl Globulin 2.8 Albumin/Globulin Ratio 1.18 Meds: Medications Discontinued Medications Generic Name Dose Route Start Last Admin Trade Name Katiana PRN Reason Stop Dose Admin Lorazepam Confirm 04/17/17 16:45 04/17/17 16:47 Ativan Administered 04/17/17 16:46 2 mg Dose Administration 2 mg .ROUTE .STK-MED ONE Morphine Sulfate Confirm 04/17/17 16:41 04/17/17 16:40 Morphine Administered 04/17/17 16:42 4 mg Dose Administration 4 mg .ROUTE .STK-MED ONE Departure - Departure Time of Disposition: 17:18 Disposition: 20 Preliminary Cause of *Q: Cardiac Arrest Condition: Critical Clinical Impression: Cardiac arrest - Discharge Information Forms: ED Department Discharge, ED Summary Discharge - My Orders Last 24 Hours: My Active Orders 04/17/17 16:33 D-DIMER QUANTITATIVE [COAG] Stat INR,PT,PROTHROMBIN TIME [COAG] Stat LACTIC ACID [CHEM] Stat PTT,PARTIAL THROMBOPLSTIN TIME [COAG] Stat - Assessment/Plan Last 24 Hours: My Active Orders 04/17/17 16:33 D-DIMER QUANTITATIVE [COAG] Stat INR,PT,PROTHROMBIN TIME [COAG] Stat LACTIC ACID [CHEM] Stat PTT,PARTIAL THROMBOPLSTIN TIME [COAG] Stat
[2017-04-17] MEDS: Morphine 4 MG/ML Syringe ONE ×2 (17:48→19:39)
[2017-04-17] MEDS ORDERED: Morphine 4 MG/ML Syringe IVPUSH ONE ×2 (18:44→19:35)
[2017-04-17] MEDS ORDERED: Morphine 4 MG/ML Syringe IVPUSH PRN (20:16)
--- NOTE | 2017-04-19 19:51 | EKG ---
04/17/2017 - COLBY HUYNH HOMER - This 12-lead EKG shows a junctional escape rhythm with a ventricular rate of 22. There is a right bundle-branch block. This EKG was taken post cardiac arrest in this 82-year-old gentleman with extensive coronary artery and valvular heart disease. This was a terminal event. [facility] /[id number]
== END 2017-04-18 04:09 | disposition expired ==
LOC: DL.ED 16:20
DX: I46.9 Cardiac arrest, cause unspecified (principal); I48.91 Unspecified atrial fibrillation; I25.10 Atherosclerotic heart disease of native coronary artery without angina pectoris; E78.00 Pure hypercholesterolemia, unspecified; I10 Essential (primary) hypertension; K21.9 Gastro-esophageal reflux disease without esophagitis; Z95.1 Presence of aortocoronary bypass graft; Z88.8 Allergy status to other drugs, medicaments and biological substances; Z79.899 Other long term (current) drug therapy; Z87.891 Personal history of nicotine dependence
CPT/HCPCS: 36415; 80053; 83605; 84484; 85025; 85379; 85610; 85730; 92950; 93005; 93010; 96374; 96375; 96376; 99285; J2060; J2270